=== PATIENT | male | born 1975 | race Caucasian/White ===

== ENCOUNTER → 2024-03-02 08:34 | Outpatient (REF) | payer BC, SELFPAY ==
[2024-03-02 09:27] LABS: % Basophils 0.5 % (0-2); % Eosinophils 3.9 % (0-6); % Immature Granulocytes 0.5 % (0-0.5); % Lymphocytes 31.6 % (20.5-51.1); % Monocytes 6.7 % (1.7-9.3); % Neutrophils 56.8 % (42.2-75.2); Absolute Eosinophils 0.3 10^3/uL (0-0.7); Absolute Monocytes 0.4 10^3/uL (0.1-0.6); Absolute Neutrophils 3.7 10^3/uL (1.4-6.5); Hematocrit 41.7 % (39.0-52.0); Hemoglobin 14.9 g/dL (13.0-18.0); Mean Corp Hgb Conc. 35.7 g/dL (33.0-37.0); Mean Corpuscular Hgb 29.7 pg (27.0-31.0); Mean Corpuscular Volume 83.1 fL (80.0-94.0); Mean Platelet Volume 9.2 fL (7.4-10.4); Nucleated Red Blood Cells % 0 % (-); Platelet Count 156 10^3/uL (130-400); Red Blood Cell Count 5.02 10^6/uL (4.70-6.10); Red Cell Dist. Width 13.2 % (11.5-14.5); White Blood Cell Count 6.4 10^3/uL (4.8-10.8)
[2024-03-02 11:00] LABS: ALT (SGPT) 36 U/L (0-50); AST (SGOT) 27 U/L (17-59); Alkaline Phosphatase 76 U/L (38-126); Blood Urea Nitrogen 19 mg/dl (9-20); Calcium 9.5 mg/dl (8.4-10.2); Carbon Dioxide 23 mmol/L (22-30); Chloride 106 mmol/L (98-107); Glucose 99 mg/dl (70-99); HDL Cholesterol 32 mg/dl; LDL Cholesterol, Calculated 82 mg/dl; Potassium 4.1 mmol/L (3.5-5.1); Sodium 141 mmol/L (135-145); Total Bilirubin 0.9 mg/dl (0.2-1.3); Total Cholesterol 154 mg/dl (50-199); Total Protein 7.2 g/dl (6.3-8.2); Triglyceride 201 mg/dl (10-149); Very Low Density Lipoprotein 40 mg/dl (0-30); eGFR > 60.00
[2024-03-02 11:05] LABS: TSH Reflex To Free T4 2.03 uIU/ml (0.47-4.68)
[2024-03-03 14:36] LABS: Lyme Antibody Screen, EIA Negative (Negative)
== END ==
LOC: REG 08:34
PROVIDERS: ATTENDING PHYSICIAN Nurse Practitioner Adult Health
DX: Z00.00 Encounter for general adult medical examination without abnormal findings (principal); R21 Rash and other nonspecific skin eruption; R53.83 Other fatigue
CPT/HCPCS: 36415; 80053; 80061; 84443; 85025; 86618

== ENCOUNTER → 2024-09-10 07:13 | Outpatient (REF) | payer BC, SELFPAY ==
[2024-09-10 08:59] LABS: Luteinizing Hormone 3.79 mIU/ml (1.24-7.80); Prolactin 9.9 ng/ml (3.7-17.9)
[2024-09-10 09:13] LABS: PSA, Total - Diagnostic 0.85 ng/ml (0.0-4.0)
[2024-09-10 09:14] LABS: Estradiol 20.4 pg/ml (5.4-66)
[2024-09-11 23:13] LABS: Free Testosterone 123 pg/mL (47-244); Sex Hormone Binding Globulin 32 nmol/L (17-56); Total Testosterone 621 ng/dL (300-890)
== END ==
LOC: REG 07:13
PROVIDERS: ATTENDING PHYSICIAN Surgery; FAMILY PHYSICIAN Internal Medicine
DX: E29.1 Testicular hypofunction (principal)
CPT/HCPCS: 36415; 82670; 83002; 84146; 84153; 84270; 84402; 84403

== ENCOUNTER → 2024-11-08 09:00 | Outpatient (REF) | payer BC, SELFPAY ==
[2024-11-08 18:36] LABS: Urine Albumin 1+ (Neg - Trace); Urine Bilirubin Negative (Negative); Urine Character Clear (Clear); Urine Color Yellow; Urine Glucose Negative (Negative); Urine Ketone Negative (Negative); Urine Leukocyte Negative (Negative); Urine Nitrite Negative (Negative); Urine Occult Blood Negative (Negative); Urine Specific Gravity 1.015 (<1.030); Urine Urobilinogen Negative (Neg - 1+)
[2024-11-08 19:15] LABS: Urine Bacteria Few (Negative); Urine Mucus Moderate; Urine Red Blood Cell 0-2 /HPF (0-2); Urine White Cell 0-2 /HPF (0-5)
== END ==
LOC: CLAB 09:00
PROVIDERS: ATTENDING PHYSICIAN Nurse Practitioner Adult Health
DX: R30.0 Dysuria (principal)
CPT/HCPCS: 81003; 81015; 87086